=== PATIENT | female | born 1935 | race Two or more races ===

== ENCOUNTER 2020-03-02 14:04 | Outpatient (CLI) | payer OTHER | END 2020-03-02 14:13 | disposition home or self-care (01) | LOC: NUCLEAR 14:04 | PROVIDERS: ATTEND Internal Medicine Cardiovascular Disease | DX: R00.2 Palpitations (principal) ==

== ENCOUNTER 2021-09-05 12:56 | Outpatient (CLI) | payer OTHER | END 2021-09-05 13:00 | disposition home or self-care (01) | LOC: RAD 12:56 | PROVIDERS: ATTEND Physical Medicine & Rehabilitation | DX: M25.561 Pain in right knee (principal) ==

== ENCOUNTER 2024-07-22 09:49 | Outpatient (CLI) | payer OTHER | END 2024-07-22 09:57 | disposition home or self-care (01) | LOC: RAD 09:49 | PROVIDERS: ATTEND Physical Medicine & Rehabilitation | DX: M54.59 Other low back pain (principal); M25.561 Pain in right knee ==